=== PATIENT | male | born 1975 | race African-American/Black ===

== ENCOUNTER 2018-08-02 00:19 | Emergency (ER) | payer OTHER ==
[2018-08-02] MEDS: FAMOTIDINE 20 MG INJ IV (00:35)
[2018-08-02] MEDS: DEXAMETHASONE 4 MG/ML 1 ML INJ IV (00:35)
[2018-08-02] MEDS: DIPHENHYDRAMINE 50 MG INJ IV (00:36)
[2018-08-02] MEDS: IPRATROPIUM (NEB) 0.5 MG/2.5 ML AMP INH (00:36)
[2018-08-02] MEDS: ALBUTEROL 0.083% (NEB) 2.5 MG/3 ML AMP INH (00:36)
[2018-08-02] MEDS: EPINEPHrine 1 MG INJ IM (00:36)
== END 2018-08-02 04:26 | disposition home or self-care (01) ==
LOC: E/R 00:19
DX: T78.2XXA Anaphylactic shock, unspecified, initial encounter (principal); J45.901 Unspecified asthma with (acute) exacerbation
CPT/HCPCS: 93005; 94664; 96372; 96374; 96375; 99291-25